=== PATIENT | male | born 1960 | race Caucasian/White ===

== ENCOUNTER 2020-05-26 09:00 | Emergency (ER) | payer OTHER, SELFPAY ==
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
[2020-05-26 09:08] VITALS: BP 187/109; PULSE 79; RESP 20; TEMP 36.8; O2SAT 97
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
[2020-05-26 09:39] VITALS: BP 168/98
== END 2020-05-26 10:20 | disposition short-term general hospital (02) ==
PROVIDERS: Emergency Provider Nurse Practitioner; PCP Internal Medicine
DX: S12.201A Unspecified nondisplaced fracture of third cervical vertebra, initial encounter for closed fracture (principal); V86.59XA Driver of other special all-terrain or other off-road motor vehicle injured in nontraffic accident, initial encounter; Y93.29 Activity, other involving ice and snow; Y99.0 Civilian activity done for income or pay; K21.9 Gastro-esophageal reflux disease without esophagitis
CPT/HCPCS: 72050; 99213; G0463; L0140